=== PATIENT | male | born 1965 | race African-American/Black ===

== ENCOUNTER → 2016-06-02 | Outpatient (CLI) | payer OTHER ==
[~2016-06-02] MED LIST: ASCO500T2 PO; CYAN10005 PO; IBUP-1060 PO; IOHEXOL 180 MG/ML 10 ML VIAL. ONE; VIT1TABL PO; methylPREDNISolone ACETATE 40 MG/ML VIAL. ONE; methylPREDNISolone ACETATE 80 MG/ML VIAL. ONE
--- NOTE | 2016-06-03 06:04 | PAIN ---
DATE OF SERVICE: 06/02/2016 PROGRESS NOTE FOR PAIN CLINIC DIAGNOSIS: Lumbar radiculopathy with lumbar degenerative disk disease and post-lumbar laminectomy syndrome. HISTORY OF PRESENT ILLNESS: The patient is a 51-year-old male who returns for followup, last seen on 07/05/2015. The patient underwent a caudal epidural steroid injection on 06/21/2015, did very well with near 100% improvement. The patient reports he has been doing very well until about the last 2-3 weeks, the pain is beginning to return in his low back and into the right lower extremity to some extent and the left lower leg. The patient reports it is more noticeable with standing, walking, changing positions, has been awakening him from sleep occasionally, but not every night and generally feels better with sitting or lying down. The patient reports that it is a 6-7 on a scale of 10 or 7-8 ____, better with lying down or sitting. The patient reports it is worse with standing and walking, increasing his activity over the past year or so and has done well with this until the last few weeks, the pain is returning. The patient reports no new injury or accident or any other inciting event that he is aware of. The patient reports no loss of motor function, but significant fatigability of his lower extremities when he is ambulating. The patient reports no bowel or bladder incontinence or other complaints. No loss of function. PAST MEDICAL HISTORY: Significant for arthritis. PREVIOUS SURGERIES: Include laryngoscopy in 1985, lumbar diskectomy in 2013 at the L5-S1 level. CURRENT MEDICATIONS: Include ibuprofen, vitamin B12, ascorbic acid, stress vitamin formula. ALLERGIES: The patient has no known drug allergies. FAMILY HISTORY: Significant for cancer, he is unsure what type. SOCIAL HISTORY: The patient does not smoke, does not drink alcohol. 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 REVIEW OF SYSTEMS: Positive for those items mentioned in the history of present illness. All systems reviewed and otherwise negative. It is complete, full and well documented on the patient's chart. PHYSICAL EXAMINATION: VITAL SIGNS: Today, the patient's blood pressure is 128/90, pulse 96, respirations 18, temperature 98.1 degrees Fahrenheit, height is 5 feet 11 inches, weight is 209 pounds. GENERAL: The patient is awake, alert, oriented, appropriate, has a very pleasant demeanor. HEENT: Shows normocephalic, atraumatic. Extraocular movements are intact and symmetrical. Oral cavity, his mucous membranes are moist and pink. Dentition is intact. NECK: Shows anterior throat supple without palpable lymphadenopathy noted. Swallow reflex is symmetrical. CHEST: Shows normal on inspection. Breath sounds are clear to auscultation bilaterally. HEART: Shows S1 and S2 clear. No murmurs auscultated. ABDOMEN: Soft, nontender, nondistended. No palpable organomegaly is noted. No rebound or guarding demonstrated. BACK: Shows spine grossly in the midline. Normal appearing thoracic kyphosis and lumbar lordotic curvature. Lumbar paraspinous musculature shows symmetrical in appearance with inspection and on palpation shows mild to moderate tenderness with palpation in the lower lumbar distribution only, but diffusely without radiation. The patient shows good rotational motion, both laterally as well as extension and flexion without exacerbation of pain. Well-healed surgical scar is again noted. EXTREMITIES: The patient's lower extremities show deep tendon reflexes at 2+ in the patellar and tendo calcaneus tendons, are 1+ bilaterally. Motor exam is strong with 5/5 dorsiflexion, extension, quadriceps and hamstring flexion and are symmetrical. Peripheral pulses are 1+, posterior tibial and dorsalis pedis pulses. No peripheral edema is noted. No clubbing, no cyanosis. PLAN: Options were discussed with the patient at this time, we will proceed with a caudal approach epidural steroid injection as the patient did very well with this initially. Risks were again discussed including, but not limited to bleeding, infection, possibility of epidural hematoma, subsequent neurological compromise, dural puncture, headaches, spinal cord and/or nerve damage, side effects of steroid medication and poor results regarding pain control. The patient understands and wishes to proceed. The patient will return to clinic in approximately 2 weeks for followup. He was counseled as to return appointment, activity level and side effects to be aware of. DIAGNOSIS: Lumbar radiculopathy with lumbar degenerative disk disease and post-lumbar laminectomy syndrome. PROCEDURE: Caudal approach epidural steroid injection using sterile prep and drape under local anesthetic using C-arm fluoroscopic guidance. MEDICATIONS INJECTED: 120 mg Depo-Medrol plus 10 mL preservative-free normal saline and 2 mL of Isovue for contrast. CONDITION AT DISCHARGE: Stable. The patient tolerated the procedure well, had no complications. BRENDA CONDE MD DR: MACHELLE/dayton JOB#: [id number] / [id number]
== END | disposition home or self-care (01) ==
LOC: PNCL 11:08
PROVIDERS: ATTEND Anesthesiology
DX: M51.16 Intervertebral disc disorders with radiculopathy, lumbar region (principal); M96.1 Postlaminectomy syndrome, not elsewhere classified; M19.90 Unspecified osteoarthritis, unspecified site
CPT/HCPCS: 62323; J1030; J1040

== ENCOUNTER → 2017-01-29 | Outpatient (CLI) | payer OTHER ==
[~2017-01-29] MED LIST changes: -IOHEXOL 180 MG/ML 10 ML VIAL. ONE; -methylPREDNISolone ACETATE 40 MG/ML VIAL. ONE; -methylPREDNISolone ACETATE 80 MG/ML VIAL. ONE
--- NOTE | 2017-01-29 22:57 | PAIN ---
DATE OF SERVICE: 01/29/2017 PROGRESS NOTE FOR PAIN CLINIC DIAGNOSES: Lumbar radiculopathy with lumbar degenerative disk disease and post-lumbar laminectomy syndrome. HISTORY OF PRESENT ILLNESS: The patient is a 51-year-old male who returns for followup status post caudal approach epidural steroid injection, last seen on 06/02/2016. The patient did very well with near 100% improvement until the last week or so ago he reported he was sleeping on the floor as his was sick and he wanted her to have the entire bed, so he slept on the floor and since that time, a week ago, the pain has been returning in his low back, radiating to the posterior gluteus, posterior thigh on the left side, which can be severe, worse with walking and standing now, change in positions, even with sitting for more than 15-20 minutes, it is becoming much more noticeable. The patient reports it is a stabbing pain that is sharp, constant, severe, unbearable, radiating to the left leg across the low back into the posterior gluteus, posterior thigh and posterior calf. The patient reports it is a 10 on a scale of 10 at its worse, a 10 on average, 9 at its least and is a 9 today. The patient reports he has been having difficulty sleeping as well even in the bed now, which awakens him sporadically through the night, especially if he lies on his left side. The patient reports no new motor or sensory deficits, no new bowel or bladder incontinence or other complaints, but still significant pain as noted. PHYSICAL EXAMINATION: VITAL SIGNS: The patient's blood pressure is 150/104, pulse 84, respirations 20, temperature 98.1 degrees Fahrenheit, height is 5 feet 11 inches, weight is 207 pounds. GENERAL: The patient is awake, alert, oriented, appropriate, very pleasant demeanor. HEENT: Head shows normocephalic and atraumatic. Extraocular movements are intact, symmetrical. Oral cavity: Mucous membranes are moist and pink. Dentition is intact. NECK: Shows anterior throat supple without palpable lymphadenopathy noted. Swallow reflex is symmetrical. CHEST: Shows normal with inspection. Breath sounds are clear to auscultation bilaterally. HEART: Shows S1 and S2 clear. ABDOMEN: Soft, nontender and nondistended. No palpable organomegaly is noted. No rebound or guarding demonstrated. MUSCULOSKELETAL: The patient's back shows spine grossly in the midline with a well- healed surgical scar noted in the lumbar distribution and some flattening of the lumbar lordotic curvature with normal thoracic kyphotic curvature. Lumbar paraspinous musculature shows symmetrical on inspection. With palpation shows some moderate tenderness with palpation throughout the middle and lower distribution of the paraspinous muscles bilaterally. No tenderness over the sacrum or sacroiliac regions. The patient shows good rotational motion of the lumbar spine both laterally as well as extension and flexion without significant difficulty. Lower extremities showed deep tendon reflexes 2+ in the patellar, 1+ in tendo calcaneus tendons. Motor exam is 5/5 and equal with dorsiflexion, extension, quadriceps and hamstring flexion and intact bilaterally. Straight leg raise noted to be positive at about 40 degrees or so on the left side, which is decreased with knee flexion. Right side is negative. Gaenslen's and Sher's maneuvers are negative bilaterally. The patient is able to stand. He is walking with a limp favoring his left lower extremity fairly significantly, not using any assistive devices to ambulate, however. Options were discussed with the patient and the patient's old chart was reviewed as well as his current medication regimen and updated. Current review of systems updated today as well. We will preauthorize the patient for a caudal approach epidural steroid injection. He has done very well with these in the past with the L5-S1 dermatomal distribution radiculopathy on the left side. The patient was given a Medrol Dosepak in the meantime with instructions on side effects to be aware of with the medication. He will follow in approximately one week. We will plan on caudal approach epidural steroid injection on return. BRENDA CONDE MD DR: MACHELLE/dayton JOB#: [id number] / [id number]
== END | disposition home or self-care (01) ==
LOC: PNCL 10:59
PROVIDERS: ATTEND Anesthesiology
DX: M51.16 Intervertebral disc disorders with radiculopathy, lumbar region (principal)
CPT/HCPCS: 99212

== ENCOUNTER → 2017-02-10 | Outpatient (CLI) | payer OTHER ==
[~2017-02-10] MED LIST changes: +IOHEXOL 180 MG/ML 10 ML VIAL. ONE; +methylPREDNISolone ACETATE 40 MG/ML VIAL. ONE; +methylPREDNISolone ACETATE 80 MG/ML VIAL. ONE
--- NOTE | 2017-02-10 18:00 | PAIN ---
DATE OF SERVICE: 02/10/2017 DIAGNOSES: Lumbar radiculopathy with lumbar degenerative disk disease and post-lumbar laminectomy syndrome. HISTORY OF PRESENT ILLNESS: The patient is a 51-year-old male who returns for followup status post evaluation and insurance preauthorization for caudal epidural steroid injection. The patient has obtained this now. Reports still significant pain in low back, left lower extremity, becoming much worse day by day, the longer he waits for his injection. The patient reports it is worse with standing, walking, changing positions, sitting is better, but lying down has traditionally been better, but recently has been awakening him from sleep significantly about every 1-2 hours, had to reposition, take pain medication, get out of bed to try and decrease the pain. The patient reports the pain is a 10 on a scale of 10 at its worst, is average and is least and is a 10 today. Pain is radiating from the low back into the posterior gluteus, posterior left thigh, left lower leg into the left ankle; sharp, shooting, stabbing, cramping, burning, constant, severe and unbearable. The patient reports no new motor or sensory deficits, no new bowel or bladder incontinence. PHYSICAL EXAMINATION: VITAL SIGNS: The patient's blood pressure is 142/98, pulse is 85, respirations are 18, temperature is 98.0 degrees Fahrenheit. Height is 5 feet 11 inches, weight is 207 pounds. GENERAL: The patient is awake, alert, oriented, appropriate, very pleasant demeanor. HEENT: Shows normocephalic, atraumatic. Extraocular movements are intact, symmetrical. Oral cavity shows mucous membranes moist and pink. NECK: Shows anterior throat is supple. CHEST: Shows breath sounds clear to auscultation bilaterally. HEART: Shows S1, S2 clear. ABDOMEN: Soft, nontender, nondistended. MUSCULOSKELETAL: Back shows spine grossly in the midline. Well healed surgical scars noted in the lumbar distribution. Lumbar paraspinous muscle shows symmetrical, inspection on palpation shows some moderate tenderness inferiorly only without radiation. The patient has good rotational motion bilaterally as well as extension and flexion. Lower extremities show deep tendon reflexes 2+ in patellar, 1+ tendo-calcaneus tendons. Motor exam is strong with 5/5 dorsiflexion, extension, quadriceps and hamstring flexion and equal. PLAN: Options were discussed with the patient. The patient's old chart was reviewed. His current medication regimen updated. Current review of systems updated today as well. We will proceed with a caudal approach epidural steroid injection with fluoroscopic guidance. Risks were again discussed including, but not limited to bleeding, infection, possibility of epidural hematoma and subsequent neurological compromise, dural puncture, headaches, spinal cord and/or nerve damage, side effects of steroid medication and poor results regarding pain control. The patient understands and wished to proceed. The patient is to return to the clinic in approximately 2 weeks for followup, was counseled on return appointment, activity level and side effects to be aware of. DIAGNOSES: Lumbar radiculopathy with lumbar degenerative disk disease and post-lumbar laminectomy syndrome. PROCEDURE: Caudal approach epidural steroid injection using C-arm fluoroscopic guidance under sterile prep and drape using local anesthetic. MEDICATIONS INJECTED: A total of 120 mg Depo-Medrol plus 10 mL of preservative-free normal saline and 2 mL of Isovue for contrast. CONDITION AT DISCHARGE: Stable. The patient tolerated procedure well, had no complications. BRENDA CONDE MD DR: MACHELLE/dayton JOB#: [id number] / [id number]
== END ==
LOC: PNCL 07:59
PROVIDERS: ATTEND Anesthesiology
DX: M51.16 Intervertebral disc disorders with radiculopathy, lumbar region (principal); M96.1 Postlaminectomy syndrome, not elsewhere classified
CPT/HCPCS: 62323; J1030; J1040

== ENCOUNTER → 2019-10-03 | Outpatient (CLI) | payer OTHER ==
[~2019-10-03] MED LIST changes: -ASCO500T2 PO; +ASCO500T4 PO; +CYAN-25 PO; -CYAN10005 PO
--- NOTE | 2019-10-03 12:00 | PAIN ---
DATE OF SERVICE: 10/03/2019 PROGRESS NOTE FOR PAIN CLINIC DIAGNOSES: Lumbar radiculopathy with lumbar degenerative disk disease and lumbar post-laminectomy syndrome. HISTORY OF PRESENT ILLNESS: The patient is a 54-year-old male, who returns for followup, status post lumbar epidural steroid injection through a caudal approach, last seen on 02/10/2017. The patient had 100% improvement after the injection. He reports for about 2-1/2 years until the last month, the pain began to return in his low back, especially in his left lower extremity, posterior gluteus, posterior thigh, lateral thigh, anterior thigh, posterior calf, lateral calf to the foot and becomes severe now where he is having difficulty putting weight on it for the past week or so. The patient reports no specific recent injury, no accident. The patient reports it awakens him from sleep about once a night, better with sitting or lying down. The patient is sitting on his right side now to get weight off of the left side as the pain is becoming much more noticeable. The patient reports it is a 10 on a scale of 10 at its worst over the past week, 10 on average, 9 at its least and is a 10 today. The patient is a sharp, shooting, tingling, burning, cramping and stabbing, unbearable at times, severe, becoming constant and radiating in the left leg. No symptoms in the right leg. The patient reports significant fatigability with the left leg as well and even to the point now within the last few days as he is having difficulty even putting any weight on it at all. The patient presents in a wheelchair today, sitting on his right hip to get the weight off of his left side. PHYSICAL EXAMINATION: VITAL SIGNS: The patient's blood pressure 141/97, pulse 116, respirations 18, temperature is 98.0 degrees Fahrenheit, height is 5 feet 11 inches, weight is 210 pounds. GENERAL: The patient is awake, alert, oriented, appropriate, has very pleasant demeanor. The patient is accompanied by his fiancee. HEENT: Shows normocephalic, atraumatic. Extraocular movements are intact and symmetrical. Oral cavity: Mucous membranes moist and pink. Dentition is intact. NECK: Shows anterior throat supple without palpable lymphadenopathy noted. Swallow reflex symmetrical. CHEST: Shows normal on inspection. Breath sounds are clear. No rales, rhonchi or wheezes auscultated. ABDOMEN: Soft, nontender, nondistended. No palpable organomegaly is noted. No rebound or guarding demonstrated. BACK: Shows spine grossly in the midline. Normal cervical lordotic curvature, thoracic kyphotic curvature, and some flattening of lumbar lordotic curvature with well-healed surgical scar noted. Lumbar paraspinous muscle shows diffusely tender throughout the upper, middle, and lower distribution of the paraspinous muscles bilaterally, but only diffusely without significant radiation. The patient has good rotational motion of the lumbar spine, both laterally as well as extension and flexion with only very mild tenderness with extension and forward flexion to 45 degrees without radiation. EXTREMITIES: The patient's lower extremities show deep tendon reflexes 2+ in the patellar, 1+ tendo-calcaneus tendons. Motor exam is approximately 3-4 on a scale of 5 with dorsiflexion and extension on the left. Quadriceps and hamstring flexion is 4/5, 5/5 on the right with dorsiflexion, extension, quadriceps, and hamstrings. Peripheral pulses are 1+ posterior tibia and no peripheral edema bilaterally. Options were discussed with the patient. The patient's old chart was reviewed as his current medication regimen updated. Current review of systems updated today as well. We will proceed with a caudal approach epidural steroid injection today with fluoroscopic guidance. Risks were again discussed, including but not limited to bleeding, infection, possibility of epidural hematoma and subsequent neurological compromise, dural puncture, headaches, spinal cord and/or nerve damage, side effects of steroid medication and poor results regarding pain control. The patient understands and wished to proceed. The patient will return to the clinic in approximately 2 weeks for followup. He was counseled on return appointment, activity level, and side effects to be aware of. DIAGNOSES: Lumbar radiculopathy with lumbar degenerative disk disease with lumbar post-laminectomy syndrome. PROCEDURE: Lumbar epidural steroid injection, caudal approach using C-arm fluoroscopic guidance under sterile prep and drape using local anesthetic. MEDICATION INJECTED: A total of 120 mg Depo-Medrol plus 10 mL of preservative-free normal saline and 2 mL of contrast. CONDITION AT DISCHARGE: Stable. The patient tolerated the procedure well, had no complications. BRENDA CONDE MD DR: MACHELLE/dayton JOB#: [id number] / [id number]
== END | disposition home or self-care (01) ==
LOC: PNCL 10:52
PROVIDERS: ATTEND Anesthesiology
DX: M51.16 Intervertebral disc disorders with radiculopathy, lumbar region (principal); M96.1 Postlaminectomy syndrome, not elsewhere classified
CPT/HCPCS: 62323; J1030; J1040; Q9965

== ENCOUNTER → 2019-10-09 | Outpatient (CLI) | payer OTHER ==
[~2019-10-09] MED LIST changes: +GADOTERATE 7.5 MMOL/15ML VIAL. IVP ONE; -IOHEXOL 180 MG/ML 10 ML VIAL. ONE; -methylPREDNISolone ACETATE 40 MG/ML VIAL. ONE; -methylPREDNISolone ACETATE 80 MG/ML VIAL. ONE
--- NOTE | 2019-10-09 20:28 | KCIC ---
LUMBAR SPINE WO/W CONTRAST History: Reason: LUMBAR RADICULOPATHY / Spl. Instructions: 2 recent injuries to exacerbate pain. Prev discectomy 2014 / History: LBP into left leg with burning, pain numbness and tingling. Technique: Multiplanar, multi sequential MR imaging was performed of the lumbar spine without and with intravenous contrast. Comparison: None Findings: Normal vertebral body height and alignment. No fracture. Conus terminates at the normal location. No evidence of nerve root clumping. No pathologic enhancement. L1-L2: No canal or neuroforaminal narrowing. L2-L3: No canal or neuroforaminal narrowing. L3-L4: Minimal disc bulge. No canal or neuroforaminal narrowing. Mild facet arthropathy. L4-L5: Small disc bulge. Moderate facet arthropathy. No canal narrowing. No neuroforaminal narrowing. L5-S1: Broad-based disc bulge with left subarticular disc extrusion extending superiorly. Heterogeneous appearance of the disc extrusion raising concern for free fragment. Severe left subarticular recess narrowing with abutment and displacement of the left descending S1 nerve root. Mild canal narrowing. Postoperative changes right hemilaminectomy. Additional right foraminal disc protrusion contributing to moderate to severe right neuroforaminal narrowing. Mild left neuroforaminal narrowing. Impression: 1. L5-S1 left subacute disc extrusion extending superiorly with heterogeneous appearance raising concern for free fragment contributing to mass effect and displacement of the left descending S1 nerve root. Correlate for radiculopathy. 2. Additional L5-S1 right foraminal disc protrusion contributing to moderate to severe right neuroforaminal narrowing. Electronically signed by: Manjit Meyer DO (10/09/2019 8:25 PM) [facility]
== END | disposition home or self-care (01) ==
LOC: KCIC MRI 15:04
PROVIDERS: ATTEND Anesthesiology
DX: M47.26 Other spondylosis with radiculopathy, lumbar region (principal); M48.07 Spinal stenosis, lumbosacral region; M51.27 Other intervertebral disc displacement, lumbosacral region; M51.17 Intervertebral disc disorders with radiculopathy, lumbosacral region
CPT/HCPCS: 72158; A9575

== ENCOUNTER → 2019-11-21 | Outpatient (CLI) | payer OTHER ==
[~2019-11-21] MED LIST changes: +DOCU-109 PO; -GADOTERATE 7.5 MMOL/15ML VIAL. IVP ONE; +HYDR-3164 PO; +METH-38 PO
[2019-11-21 18:32] LABS: ALBUMIN 3.7 g/dL (3.4-5.0); ALBUMIN/GLOBULIN RATIO 0.9 (1.0-1.7); CALCIUM 9.2 mg/dL (8.5-10.1); CREATININE 0.9 mg/dL (0.7-1.3); GFR 105.6; POTASSIUM 4.5 mmol/L (3.5-5.1); TOTAL BILIRUBIN 0.5 mg/dL (0.2-1.0); TOTAL PROTEIN 7.9 g/dL (6.4-8.2)
[2019-11-21 18:44] LABS: BASO % 1 % (0-3); EOS # 0.1 x10^3/uL (0.0-0.7); EOS % 1 % (0-3); HEMATOCRIT 40.7 % (39.0-53.0); HEMOGLOBIN 13.6 g/dL (13.0-17.5); LYMPH # 1.8 x10^3/uL (1.0-4.8); LYMPH % 26 % (24-48); MEAN CORPUSCULAR HEMOGLOBIN 31 pg (25-35); MEAN CORPUSCULAR HGB CONC 33 g/dL (31-37); MEAN CORPUSCULAR VOLUME 92 fL (79-100); MONO # 0.9 x10^3/uL (0.0-1.1); MONO % 13 % (0-9); NEUT # 4.1 x10^3/uL (1.8-7.7); NEUT % 60 % (31-73); PLATELET COUNT 132 x10^3/uL (140-400); RED BLOOD COUNT 4.44 x10^6/uL (4.30-5.70); RED CELL DISTRIBUTION WIDTH 14.9 % (11.5-14.5); WHITE BLOOD COUNT 6.8 x10^3/uL (4.0-11.0)
== END | disposition home or self-care (01) ==
LOC: SURGPAT 13:24
PROVIDERS: ATTEND Neurological Surgery
DX: Z01.812 Encounter for preprocedural laboratory examination (principal); Z20.828 Contact with and (suspected) exposure to other viral communicable diseases; M51.37 Other intervertebral disc degeneration, lumbosacral region
CPT/HCPCS: 80053; 85025; 87641; U0003

== ENCOUNTER 2019-11-24 07:19 | Day surgery (SDC) | payer OTHER ==
--- NOTE | 2019-11-23 12:47 | HP ---
ADMIT DATE: 11/24/2019 PREOPERATIVE HISTORY AND PHYSICAL DATE OF SURGERY: 11/24/2019 HISTORY OF PRESENT ILLNESS: The patient is a pleasant 54-year-old who has difficulty with left-sided low back pain, which radiates to his buttock, posterior thigh and leg. He has pain, which radiates all the way down his left foot. He notices numbness in his left foot. The problem started abruptly on 09/29 when he felt a pop in his back. From that time to the present, he has had pain. He rates his pain as a 9/10. He gains some relief by lying on his back or right side. He had epidural steroid injections later in September. This was not of any benefit. There is no problem on the right side. His pain is incapacitating. PAST MEDICAL HISTORY: Arthritis and headaches. PAST SURGICAL HISTORY: Throat surgery in 1985, lumbar microdecompression at L5-S1 on the right in 02/2014. FAMILY HISTORY: Heart problems or disease and cancer. 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 . Nonsmoker. Does not drink alcohol. ALLERGIES: No known drug allergies. CURRENT MEDICATIONS: Ibuprofen, vitamin C, and Tylenol. REVIEW OF SYSTEMS: A 12-point review of systems was obtained and is noncontributory except for that mentioned above. PHYSICAL EXAMINATION: NEUROSURGERY EXAMINATION: GENERAL APPEARANCE: Alert, pleasant, no acute distress. HEAD: Normocephalic and atraumatic. SKIN: Warm and dry. MUSCULOSKELETAL: Lumbar paraspinal muscle bulk is normal, restricted range of motion of the lumbar spine, [id number] tenderness of the lower lumbar spine with palpation, normal range of motion of the lower extremities bilaterally. EXTREMITIES: No clubbing, cyanosis or edema. NEUROLOGIC: Alert, oriented x 3, normal recent and remote memory. Strength 5/5 in bilateral lower extremities. Sensory was intact to light touch in bilateral lower extremities, except for decrease in the lateral side and plantar surface of his left foot. Reflexes are present and symmetric in the lower extremities bilaterally except for an absent left ankle jerk, markedly positive straight leg raising on the left, negative straight leg raising on the right, antalgic gait favoring his left leg. IMAGING: I reviewed a lumbar MRI scan from 10/09/2019. On that study, there are postoperative changes at L5-S1 on the right. There is, at that level, a broad-based disc bulge with left-sided disc extrusion which extends superiorly. This does displace and compress the left S1 nerve root. ASSESSMENT/ PLAN: The patient has a herniated lumbar disc with an extruded fragment on the left at L5-S1. His pain is excruciating and debilitating. He has had an epidural steroid injection without any benefit. I do not feel that physical therapy would be of benefit. At this point, my recommendation is that he consider surgery. He has undergone lumbar surgery in the past on the right side at L5-S1 in 2013. I discussed with him this surgery and I spoke about the expected postoperative course. He underlined the risks and he strongly would like to proceed. We will make the arrangements. SONIA REDDY MD DR: WADE/dayton JOB#: [id number] / [id number] ROSAL[place]
[~2019-11-24] VITALS: Ht 180.3 cm; Wt 93.0 kg
[~2019-11-24 07:19] MED LIST changes: +BACITRACIN 50,000 UNIT in IV NORMAL SALINE 1000ML BAG 1,000 ML IRR ONE; +BUPIVACAINE-EPI 0.5%-1:200000 MPF 30 ML VIAL. ONE; -DOCU-109 PO; +GELATIN SPONGE SIZE 100. ONE; -HYDR-3164 PO; +HYDROmorphone 2 MG/ML VIAL IV PRN; +KETOROLAC 60 MG/2 ML VIAL. ONE; +LIDOCAINE 1% PF 2 ML VIAL. ID PRN; -METH-38 PO; +MORPHINE SULFATE 2 MG/ML VIAL. IV PRN; +ONDANSETRON PF 4 MG/2 ML VIAL. IV PRN; +PROCHLORPERAZINE 10 MG/2 ML VIAL. IV PRN; +THROMBIN TOPICAL 20,000 UNIT SPRAY.SYRN KIT TP ONE; +fentaNYL PF VIAL 100 MCG/2 ML VIAL IV PRN
[2019-11-24] MEDS: IV RINGERS,LACTATED 1000ML 1,000 ML IV SCH ×2 (07:58→11:47)
[2019-11-24] MEDS ORDERED: ROCURONIUM 50 MG/5 ML VIAL. ONE (08:23)
[2019-11-24] MEDS ORDERED: fentaNYL PF VIAL 100 MCG/2 ML VIAL ONE (08:23)
[2019-11-24] MEDS ORDERED: REMIFENTANIL 2 MG VIAL. IV ONE (08:24)
[2019-11-24] MEDS ORDERED: MIDAZOLAM HCL/PF 2 MG/2 ML VIAL. ONE (08:32)
[2019-11-24] MEDS ORDERED: METH-38 PO (09:51)
[2019-11-24] MEDS ORDERED: HYDR-3164 PO (09:51)
[2019-11-24] MEDS ORDERED: DOCU-109 PO (09:51)
--- NOTE | 2019-11-24 09:55 | DISCH ---
DISCHARGE INSTRUCTIONS Condition on Discharge Condition on Discharge: Stable Activity After Discharge Activity Instructions for Disc: Resume previous activity, Activity as tolerated Other activity instructions: no driving for a week, leave steri strips on Bathing Instructions: Shower-keep dressing dry Lifting Instructions after Dis: No heavy lifting, No pulling or pushing, Do not lift >10 pounds Diet after Discharge Additional Diet Restrictions: resume home diet Wound Incision Care Wound/Incision Care: Ice to area for comfort Other wound/incision instructi: may remove dressing in 48 hours if dry then may shower, no soaking Contacting the after DC Call your doctor for: Concerns you may have Follow-Up Follow up with: Dr. Reddy's nurse in 2 weeks [phone] SONIA REDDY MD Nov 24, 2019 09:55
[2019-11-24] MEDS ORDERED: PHENYLEPHRINE 10 MG/ML VIAL. ONE ×2 (09:58)
[2019-11-24] MEDS ORDERED: NEOSTIGMINE METHYLSULFATE 5 MG/5 ML SYRINGE. ONE (10:57)
[2019-11-24] MEDS ORDERED: GLYCOPYRROLATE 1 MG/5 ML VIAL. ONE (10:57)
[2019-11-24] MEDS ORDERED: DESFLURANE > 120 MINUTES IH ONE (11:11)
[2019-11-24] MEDS ORDERED: PROPOFOL 10 MG/ML (20ML) VIAL. IV ONE (11:11)
[2019-11-24] MEDS ORDERED: LIDOCAINE 2% PF 5 ML VIAL. ONE (11:11)
[2019-11-24] MEDS ORDERED: PROPOFOL 50 ML IV ONE (11:11)
[2019-11-24] MEDS ORDERED: DEXAMETHASONE SOD PHOS 20 MG/5 ML VIAL. ONE (11:12)
[2019-11-24] MEDS ORDERED: ONDANSETRON PF 4 MG/2 ML VIAL. ONE (11:12)
[2019-11-24] MEDS ORDERED: PHENYLEPHRINE in 0.9% NACL PF 1 MG/10 ML SYRINGE. IV ONE (11:12)
[2019-11-24] MEDS ORDERED: HYDROcodone/APAP 5/325MG 1 TAB TABLET PO ONE (11:30)
--- NOTE | 2019-11-24 11:49 | OP ---
DATE OF SURGERY: 11/24/2019 PREOPERATIVE DIAGNOSES: Herniated lumbar disc L5-S1, left with left lumbar radiculopathy. POSTOPERATIVE DIAGNOSES: Herniated lumbar disc L5-S1, left with left lumbar radiculopathy. OPERATION PERFORMED: Hemilaminotomy and microdiscectomy L5-S1, left. This is a reoperation level. The operation was done with EMG monitoring, SSEP monitoring, fluoroscopy, microscopic dissection. SURGEON: Dickson Reddy M.D. CRIB TENDER: LUCAS Perry assisted with the surgery. She assisted with the exposure, the microdiscectomy as well as the closure. OPERATIVE INDICATIONS: The patient is a very pleasant 54-year-old who in the past has undergone lumbar surgery and done well. He has now developed severe back and left leg pain, which he failed conservative measures and on imaging studies had the above-mentioned findings and I recommended lumbar microsurgery. I spoke with him about the surgery, the risks, the technique and expected postoperative course and he wished to go ahead. DESCRIPTION OF PROCEDURE: Following general endotracheal anesthesia, the patient was positioned prone on the Josué table. Lumbar region prepped and draped in standard fashion. JC hose and AV impulse boots were applied for DVT prophylaxis. A microscope was draped. Fluoroscopy was draped and brought into field. Monitoring was established. Ancef 2 grams was given less than 1 hour prior to initiation of the surgery. Using fluoroscopic guidance, a portion of his previous incision at L5- S1 was reopened and also a portion which extended slightly inferior to the previous incision. I dissected down through skin and subcutaneous tissue, reflected the paraspinal muscles and placed a [place] micro disc retractor. I brought in the microscope and using high speed air drill, I drilled down a generous hemilaminotomy. I trimmed away the thickened ligamentum flavum. I performed a partial foraminotomy. The root was extremely tightly tethered and scarred and I worked and gently freed this up and retracted medially. I was able remove a few pieces from within the disc space of disc and then as I worked like it was gradual decompression, I gradually was able to remove a few large subligamentous fragments and then the dura was more mobile. I found the superiorly herniated disc fragment, which was quite large and which I teased back and removed. Following this, the area was very well decompressed. I followed the nerve root inferiorly. Superiorly, there was no pressure on the dural sac or nerve that I could detect. I irrigated copiously and then I gently removed the retractor, irrigated further, obtained hemostasis in the muscle and closed the wound in layers with absorbable suture. The skin was closed with 4-0 subcuticular stitch. The operation went very well. The patient was awakened uneventfully and taken to recovery room in excellent condition. I was quite pleased with the surgery. DICKSON REDDY MD DR: WADE/dayton JOB#: [id number] / [id number] ROSALVA
[2019-11-24] MEDS ORDERED: hydrALAZINE 20 MG/ML VIAL. IVP ONE (12:00)
[2019-11-24] MEDS ORDERED: hydrALAZINE 20 MG/ML VIAL. ONE (12:00)
[2019-11-24 12:45] VITALS: BP 144/77
--- NOTE | 2019-11-27 14:07 | PATHOLOGY ---
[facility] Accession Number: [id number] . 01 Material submitted: . vertebral column - LUMBAR DISC AND DECOMPRESSION . 01 Clinical history: . LUMBAR HERNIATED DISC . 02 Diagnosis: Segments of fibrocartilaginous and adipose tissue and bone, lumbar disc and decompression: - Degenerative changes of fibrocartilaginous tissue. . ([facility]:mm; 11/27/2019) [facility] 11/27/2019 1328 Local . 02 Comment: There is no evidence of an acute inflammatory process or malignancy. . ([facility]:mm; 11/27/2019) . 02 Electronically signed: . Pineda Rodriguez MD, Pathologist NPI- [id number] . 01 Gross description: . Received in formalin labeled "Lorenza Mendez, lumbar disc and decompression" is a 3.0 x 2.8 x 2.0 cm aggregate of correa-white rubbery and gritty soft tissue and bone fragments. Aircraft Captain tissue is submitted in cassette A1 following decalcification. ([facility]; 11/26/2019) [facility] 11/27/2019 1042 Local . 02 Pathologist provided ICD-10: M51.36 . 02 CPT . 418020, [id number] Specimen Comment: A courtesy copy of this report has been sent to [phone] Specimen Comment: Report sent to Performed at: 01 [facility] [address], [place] [id number] MD Eliecer Aguilera MD Phone: [phone] Performed at: 02 [facility] [address] [place], [place] [id number] MD Pineda Rodriguez MD Phone: [phone]
== END 2019-11-24 13:08 | disposition home or self-care (01) ==
LOC: SURG 07:19
PROVIDERS: ATTEND Neurological Surgery
DX: M51.16 Intervertebral disc disorders with radiculopathy, lumbar region (principal); M19.90 Unspecified osteoarthritis, unspecified site; Z79.899 Other long term (current) drug therapy
CPT/HCPCS: 63042; 88304; 88311; 97161; A7015; J0360; J0690; J1100; J1885; J2250; J2370; J2405; J2704; J2710; J3010; J3490; J7030; J7120; 76000